=== PATIENT | female | born 1970 | race African-American/Black ===

== ENCOUNTER 2019-12-25 16:15 | Outpatient (CLI) | payer OTHER, SELFPAY ==
--- NOTE | ~2019-12-25 | US_ITS ---
EXAMINATION: US venous doppler LE RT DATE: 12/25/2019 16:57 INDICATION: Right lower limb pain TECHNIQUE: Mireles scale images without and with compression and Doppler images of the right lower extre mity veins were obtained. COMPARISON: None FINDINGS: The right common femoral vein, profunda femoral vein, femoral vein, popliteal vein, peronea l trunk, posterior tibial veins, and greater saphenous vein are patent. IMPRESSION: 1. Patent right lower extremity veins. No evidence of deep venous thrombosis. Reviewed, dictated and finalized at location A.
== END 2019-12-25 16:16 | disposition home or self-care (01) ==
PROVIDERS: Visit Provider Physician Assistant
DX: M79.661 Pain in right lower leg (principal)
CPT/HCPCS: 93971

== ENCOUNTER 2022-03-09 10:13 | Emergency (ER) | payer OTHER, SELFPAY ==
[2022-03-09 10:34] VITALS: BP 185/74; PULSE 108; RESP 14; TEMP 36.4; O2SAT 99
[2022-03-09 13:08] VITALS: BP 190/78; PULSE 99; RESP 18; O2SAT 100
--- NOTE | 2022-03-09 13:11 | ED.GENADULT ---
HPI - General Adult General Chief complaint: Unspecified Stated complaint: facial swelling, feel dehydrated Time Seen by Provider: 03/09/22 12:55 Source: patient Mode of arrival: ambulatory Limitations: no limitations History of Present Illness HPI narrative: 52-year-old with a history of prediabetes here with complaints of dental pain and swelling for past 2 days. Patient denies any fever or chills. She states that she is unable to get into a dentist. Denies any trauma. Onset (ago): day(s) (2) Location: face Severity: moderate Quality: aching Pain Consistency: constant Relieving factors: none Exacerbating factors: none Associated symptoms: denies other symptoms Related Data Allergies Allergy/AdvReac Type Severity Reaction Status Date / Time metronidazole Allergy Intermediate Palpitation Verified 08/11/18 12:25 s Review of Systems Review of Systems: All systems reviewed & are unremarkable except as noted in HPI and below Constitutional: Constitutional: Reports no additional constitutional complaints Eyes: Eyes: Reports no additional eye complaints ENT: Reports as per HPI Cardiovascular: Cardiovascular: Reports no additional cardiovascular complaints Respiratory: Respiratory: Reports no additional respiratory complaints Gastrointestinal: Gastrointestinal: Reports no additional gastrointestinal complaints Musculoskeletal: Musculoskeletal: Reports no additional musculoskeletal complaints PMFSH Family History Family History Other Diabetes mellitus Social History Social History Alcohol intake: current Exam Narrative: GENERAL: Well-appearing, well-nourished, and in no acute distress. HEAD: Normocephalic, atraumatic. EYES: PERRLA and EOMI. ENT: Nares clear, Mucous membranes moist.Dental caries #28 , STS of the right side of the jaw NECK: Supple. CHEST: Clear to auscultation. No respiratory distress. HEART: Regular rate and rhythm. No murmur heard. Normal peripheral pulses. EXTREMITIES: Normal range of motion. No edema. SKIN: Warm, dry, no rash. NEURO: No focal deficits. Alert and oriented x3. PSYCH: Normal mood and affect. Course Course Emergency Course: Patient has dental abscess advised her to take antibiotic as prescribed, follow-up with the dentist in the next few days. Vital Signs Vital signs: Vital Signs Temperature 36.4 C 03/09/22 10:34 Pulse Rate 108 H 03/09/22 10:34 Respiratory Rate 14 03/09/22 10:34 Blood Pressure 185/74 H 03/09/22 10:34 Pulse Oximetry 99 03/09/22 10:34 Oxygen Delivery Room Air 03/09/22 10:34 Temperature 36.4 C 03/09/22 10:34 Pulse Rate 99 03/09/22 13:08 Respiratory Rate 18 03/09/22 13:08 Blood Pressure 190/78 H 03/09/22 13:08 Pulse Oximetry 100 03/09/22 13:08 Oxygen Delivery Room Air 03/09/22 13:08 Medical Decision Making Vital Signs Vital Signs: Vital Signs Temperature 36.4 C 03/09/22 10:34 Pulse Rate 108 H 03/09/22 10:34 Respiratory Rate 14 03/09/22 10:34 Blood Pressure 185/74 H 03/09/22 10:34 Pulse Oximetry 99 03/09/22 10:34 Oxygen Delivery Room Air 03/09/22 10:34 Temperature 36.4 C 03/09/22 10:34 Pulse Rate 99 03/09/22 13:08 Respiratory Rate 18 03/09/22 13:08 Blood Pressure 190/78 H 03/09/22 13:08 Pulse Oximetry 100 03/09/22 13:08 Oxygen Delivery Room Air 03/09/22 13:08 Discharge Plan Discharge Clinical Impression: Abscess, dental Patient Disposition: Home, Self-Care Condition: Stable Instructions: Antibiotic Form, Dental Abscess (ED) Additional Instructions: Take antibiotic as prescribed, follow-up with your dentist. Prescriptions: New amoxicillin-pot clavulanate 875-125 mg tablet 1 tablet PO Q12H Qty: 20 0RF tramadol 50 mg tablet 50 mg PO Q6H PRN (Reason: pain) Qty: 20 0RF Follow-up/Referrals: PHYSICIAN,CHAIN HOIST OPERATOR [
[2022-03-09 13:42] VITALS: BP 187/84; PULSE 64; RESP 12; O2SAT 98
== END 2022-03-09 13:43 | disposition home or self-care (01) ==
PROVIDERS: Emergency Provider Family Medicine
DX: K04.7 Periapical abscess without sinus (principal); E11.9 Type 2 diabetes mellitus without complications
CPT/HCPCS: 99283